=== PATIENT | female | born 1965 | race Caucasian/White ===

== ENCOUNTER 2020-10-18 17:59 | Emergency (ER) | payer SELFPAY ==
[2020-10-18] MEDS ORDERED: HYDROCODONE/APAP 5/325 MG TAB ONE (18:59)
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
[2020-10-18 20:36] VITALS: BP 158/103; TEMP 98; O2SAT 100
== END 2020-10-18 19:13 | disposition home or self-care (01) ==
LOC: EDSEX → ER 17:59
DX: S60.221A Contusion of right hand, initial encounter (principal); M54.5 Low back pain; V49.40XA Driver injured in collision with unspecified motor vehicles in traffic accident, initial encounter; F17.210 Nicotine dependence, cigarettes, uncomplicated
CPT/HCPCS: 99283

== ENCOUNTER 2021-01-18 11:44 | Emergency (ER) | payer SELFPAY ==
--- NOTE | 2021-01-18 13:43 | ER ---
Nurse's Notes [facility] Name: Jeffrey Vogt Age: 55 yrs Sex: Male : 1965 Arrival Date: 01/18/2021 Time: 11:47 Bed 29 Private MD: Diagnosis: Unspecified intestinal parasitism Presentation: 01/18 12:16 Chief complaint: Patient states: "I am having these bugs in my eyes and causing sores. jd3 I have a bad one on my back and on my leg. splinter-like and they hurt to come out.". Coronavirus screen: At this time, the client does not indicate any symptoms associated with coronavirus-19. Ebola Screen: Patient negative for fever greater than or equal to 101.5 degrees Fahrenheit, and additional compatible Ebola Virus Disease symptoms. Initial Sepsis Screen: Does the patient meet any 2 criteria? No. Patient's initial sepsis screen is negative. Does the patient have a suspected source of infection? No. Patient's initial sepsis screen is negative. Risk Assessment: Do you want to hurt yourself or someone else? Patient reports no desire to harm self or others. Onset of symptoms was January 18, 2021. 12:16 Method Of Arrival: Ambulatory jd3 12:16 Acuity: AGUSTÍN 3 jd3 Historical: - Allergies: 12:21 No Known Allergies; jd3 - PMHx: 12:21 umbilican hernia; CHF; Anxiety; COPD; Hypertension; jd3 - PSHx: 12:21 elbow- right; jd3 - Immunization history:: Adult Immunizations up to date. - Social history:: Smoking status: Patient reports the use of cigarette tobacco products. Screenin:49 Abuse screen: Denies threats or abuse. Nutritional screening: No deficits noted. vg1 Tuberculosis screening: No symptoms or risk factors identified. Fall Risk No fall in past 12 months (0 pts). No secondary diagnosis (0 pts). No IV (0 pts). Ambulatory Aid- None/Bed Rest/Nurse Assist (0 pts). Gait- Normal/Bed Rest/Wheelchair (0 pts) Mental Status- Oriented to own ability (0 pts). Total Bennett Fall Scale indicates No Risk (0-24 pts). Assessment: 13:48 General: Appears in no apparent distress. uncomfortable, Behavior is cooperative, vg1 anxious. Pain: Complains of pain in Pt states 'all over body' Pain currently is 8 out of 10 on a pain scale. Noted to be agitated, grimacing. Neuro: Level of Consciousness is awake, alert, obeys commands, Oriented to person, place, time, situation. Cardiovascular: Patient's skin is warm and dry. Respiratory: Airway is patent Respiratory effort is even, unlabored. GI: No signs and/or symptoms were reported involving the gastrointestinal system. : No signs and/or symptoms were reported regarding the genitourinary system. EENT: No signs and/or symptoms were reported regarding the EENT system. Derm: Wound noted Rash noted that is itchy. Musculoskeletal: Circulation, motion, and sensation intact. Vital Signs: 12:21 BP 138 / 99; Pulse 78; Resp 18 S; Temp 97.8(TE); Pulse Ox 98% on R/A; Weight 97.52 kg jd3 (R); Height 5 ft. 11 in. (180.34 cm) (R); Pain 0/10; 12:21 Body Mass Index 29.99 (97.52 kg, 180.34 cm) jd3 ED Course: 11:47 Patient arrived in ED. ds1 12:18 Triage completed. jd3 12:24 Arm band placed on. jd3 13:20 Rigo Lee PA is PHCP. [facility] 13:20 Micah Razo MD is Attending Physician. [facility] 13:23 Rachell Dunbar, ALVA is Primary Nurse. vg1 13:49 Patient has correct armband on for positive identification. Bed in low position. Call vg1 light in reach. 13:49 No provider procedures requiring assistance completed. Patient did not have IV access vg1 during this emergency room visit. Administered Medications: No medications were administered Outcome: 13:43 Discharge ordered by . [facility] 13:56 Discharged to home ambulatory. vg1 13:56 Condition: stable 13:56 Discharge instructions given to patient, Instructed on discharge instructions, follow up and referral plans. medication usage, Demonstrated understanding of instructions, follow-up care, medications, Prescriptions given X 3. 13:56 Patient left the ED. vg1 Signatures: Rigo Lee PA PA [facility] Jenae Moreno ds1 [place]on, Prosper, RN RN jd3 Manjinder, Rachell, RN RN vg1
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
[2021-01-18 14:40] VITALS: BP 138/99; TEMP 97.8; O2SAT 98
== END 2021-01-18 13:56 | disposition home or self-care (01) ==
LOC: EDSEX 11:44 → ER 11:44
DX: B82.9 Intestinal parasitism, unspecified (principal); I11.0 Hypertensive heart disease with heart failure; I50.9 Heart failure, unspecified; F41.9 Anxiety disorder, unspecified; J44.9 Chronic obstructive pulmonary disease, unspecified; F17.210 Nicotine dependence, cigarettes, uncomplicated; K42.9 Umbilical hernia without obstruction or gangrene
CPT/HCPCS: 99282